=== PATIENT | male | born 2000 | race Caucasian/White ===

== ENCOUNTER → 2020-08-08 13:08 | Outpatient (CLI) | payer BC, SELFPAY ==
[2020-08-08 14:44] LABS: Basophils # 0.2 K/mm3 (0-0.2); Basophils % 1.8 % (0.1-2.0); Eosinophils # 0.1 K/mm3 (0.0-0.4); Eosinophils % 0.8 % (0.1-12.0); Hemoglobin 14.9 g/dL (14.1-18.0); Lymphocytes # 8.4 K/mm3 (0.7-4.5); Lymphocytes % 70.1 % (10-50); Mean Corpuscular HGB Conc 33.8 g/dL (31.8-35.4); Mean Corpuscular Hemoglobin 31.1 pg (27.0-31.2); Mean Platelet Volume 8.2 fl (7.4-10.4); Monocytes # 0.5 K/mm3 (0.1-1.0); Monocytes % 4.3 % (1.7-9.3); Neutrophils # 2.8 K/mm3 (1.8-7.8); Platelet Count 174 K/mm3 (142-424); Red Blood Count 4.78 M/mm3 (4.60-6.20); Red Cell Distribution Width 13.9 % (11.5-17.5)
[2020-08-08 14:46] LABS: MANUAL DIFFERENTIAL MANUAL DIFFERENTIAL (MANUAL DIFF)
[2020-08-08 16:52] LABS: Lymphocytes % 34 % (10-50); Monocytes % 35 % (2-9); Neutrophils % 26 % (42-76); Platelet Estimate Normal; RBC Morphology Normal; Total Cells Counted 100
== END ==
PROVIDERS: PCP Family Medicine; Visit Provider Family Medicine
DX: Z03.818 Encounter for observation for suspected exposure to other biological agents ruled out (principal)
CPT/HCPCS: 85007; 85025; U0003

== ENCOUNTER → 2020-10-25 12:03 | Outpatient (CLI) | payer BC, SELFPAY ==
--- NOTE | 2020-10-25 12:10 | XR_ITS ---
PROCEDURE: XR ANKLE LT MIN 3V CLINICAL INDICATION: S99.911A Posttraumatic pain and swelling COMPARISON: No exams were available for comparison FINDINGS: No fracture or dislocation. No lytic or blastic change. There is normal mineralization. The joint spaces are well-preserved. No significant degenerative/arthritic changes. No erosive changes evident. Other findings:None. IMPRESSION: No acute findings. Dictated by: Josh Del Real MD 10/25/2020 12:41 Josh Del Real MD in [place] 10/25/2020 12:41
== END ==
PROVIDERS: PCP Family Medicine; Visit Provider Family Medicine
DX: S99.911A Unspecified injury of right ankle, initial encounter (principal)
CPT/HCPCS: 73610

== ENCOUNTER → 2021-02-01 13:29 | Outpatient (CLI) | payer BC, SELFPAY ==
[2021-02-01 15:19] LABS: Basophils % 0.6 % (0.1-2.0); Eosinophils # 0.2 K/mm3 (0.0-0.4); Eosinophils % 2.7 % (0.1-12.0); Hematocrit 48.2 % (42.0-52.0); Hemoglobin 16.2 g/dL (14.1-18.0); Lymphocytes # 1.1 K/mm3 (0.7-4.5); Mean Corpuscular HGB Conc 33.6 g/dL (31.8-35.4); Mean Corpuscular Hemoglobin 30.9 pg (27.0-31.2); Mean Corpuscular Volume 91.9 fl (80-94); Monocytes # 0.4 K/mm3 (0.1-1.0); Monocytes % 5.9 % (1.7-9.3); Neutrophils # 5.1 K/mm3 (1.8-7.8); Neutrophils % 74.8 % (37.0-80.0); Platelet Count 194 K/mm3 (142-424); Red Blood Count 5.24 M/mm3 (4.60-6.20); Red Cell Distribution Width 13.3 % (11.5-17.5); White Blood Count 6.8 K/mm3 (4.8-10.8)
== END ==
PROVIDERS: PCP Family Medicine; Referring Provider Family Medicine; Visit Provider Family Medicine
DX: Z20.822 Contact with and (suspected) exposure to COVID-19 (principal)
CPT/HCPCS: 36415; 85025; U0003

== ENCOUNTER → 2021-10-26 11:11 | Outpatient (CLI) | payer BC, SELFPAY ==
[2021-10-26 11:55] LABS: Adenovirus,PCR Not Detected (NotDetected); Bordetella Pertussis Not Detected (NotDetected); Chlamydophila Pneumoniae, PCR Not Detected (NotDetected); Coronavirus 229E Not Detected (NotDetected); Coronavirus NL63 Not Detected (NotDetected); Coronavirus OC43 Not Detected (NotDetected); Coronovirus HKU1,PCR Not Detected (NotDetected); Human Metapneumovirus Not Detected (NotDetected); Influenza A, PCR Not Detected (NotDetected); Influenza AH1, 2009 Not Detected (NotDetected); Influenza AH1, PCR Not Detected (NotDetected); Influenza AH3,PCR Not Detected (NotDetected); Influenza B, PCR Not Detected (NotDetected); Mycoplasma Pneumoniae, PCR Not Detected (NotDetected); Parainfluenza 1, PCR Not Detected (NotDetected); Parainfluenza 2, PCR Not Detected (NotDetected); Parainfluenza 3, PCR Not Detected (NotDetected); Parainfluenza 4, PCR Not Detected (NotDetected); Respiratory Syncytial Virus Not Detected (NotDetected); Rhinovirus/Enterovirus Not Detected (NotDetected)
[2021-10-26 12:09] LABS: Basophils # 0.1 K/mm3 (0-0.2); Basophils % 2.5 % (0.1-2.0); Eosinophils % 0.8 % (0.1-12.0); Hematocrit 51.8 % (42.0-52.0); Lymphocytes # 1.2 K/mm3 (0.7-4.5); Lymphocytes % 25.3 % (10-50); Mean Corpuscular HGB Conc 32.8 g/dL (31.8-35.4); Mean Corpuscular Hemoglobin 31.5 pg (27.0-31.2); Mean Corpuscular Volume 95.9 fl (80-94); Mean Platelet Volume 8.3 fl (7.4-10.4); Monocytes # 0.6 K/mm3 (0.1-1.0); Monocytes % 12.7 % (1.7-9.3); Neutrophils # 2.8 K/mm3 (1.8-7.8); Neutrophils % 58.8 % (37.0-80.0); Platelet Count 185 K/mm3 (142-424); Red Blood Count 5.41 M/mm3 (4.60-6.20); White Blood Count 4.8 K/mm3 (4.8-10.8)
[2021-10-26 14:02] LABS: Coronavirus 19, PCR Detected (NotDetected)
== END ==
PROVIDERS: PCP Family Medicine; Visit Provider Family Medicine
DX: U07.1 COVID-19 (principal)
CPT/HCPCS: 36415; 85025; 87581; 87632; 87798; C9803; U0003; U0005

== ENCOUNTER → 2021-12-19 08:56 | Outpatient (POV) | payer BC, SELFPAY | PROVIDERS: Visit Provider Dermatology | DX: Z00.00 Encounter for general adult medical examination without abnormal findings (principal) ==

== ENCOUNTER → 2023-03-12 10:14 | Outpatient (POV) | payer BC, SELFPAY | PROVIDERS: Visit Provider Dermatology | DX: Z00.00 Encounter for general adult medical examination without abnormal findings (principal) ==

== ENCOUNTER 2024-06-18 09:13 | Emergency (ER) | payer BC, SELFPAY ==
[2024-06-18 09:26] VITALS: BP 143/83; PULSE 75; RESP 16; TEMP 36.8; O2SAT 100; BMI 30.3
--- NOTE | 2024-06-18 09:26 | XR_ITS ---
FINAL REPORT CLINICAL HISTORY: smashed 3rd digit COMPARISON: None FINDINGS: LEFT HAND: 3 views of the left hand were obtained. There is no acute fracture or dislocation. Visualized joint spaces are normally aligned. Soft tissues are unremarkable. IMPRESSION: No acute bony abnormality. Reviewed, Interpreted and Dictated by Mike Ronquillo III, MD Transcribed by Rufina Wan Authenticated and [facility]
--- NOTE | 2024-06-18 09:59 | ED_ITS ---
Discharge Plan Disposition Patient Disposition: Home, Self-Care Condition: Good Prescriptions Prescriptions: New cephalexin 500 mg capsule 500 mg PO QID Qty: 40 0RF mupirocin 2 % ointment 1 applic topical TID 7 Days Qty: 15 0RF No Action amoxicillin 500 mg capsule 500 mg PO Q12H 10 Days Qty: 20 0RF Referrals Follow up/Referrals: Jovanni Casanova MD [Primary Care Provider] - See instructions Artis Chua DO [Staff Physician] - See instructions Activity Restrictions/Add. Instructions Additional Instructions/Restrictions: Keep the wound clean and dry. Rest the extremity, Elevate the extremity as tolerated while you are resting. Keep a dressing on it if you are going to be getting it dirty. Watch the wound for signs of infection, such as redness, swelling, drainage, fever. etc. Take the antibiotics as directed. Take tylenol or ibuprofen for pain. Follow up with your regular doctor. Follow up with Dr. Chua (orthopedics). I put in a referral but you need to call his office and schedule an appointment. GO TO THE ER FOR ANY WORSENING SYMPTOMS OR CONCERNS. Clinical Impressions Clinical Impression: Laceration of left middle finger, Crushing injury of left middle finger Stand Alone Forms Stand Alone Forms: Work/School Release Instructions Patient Instructions: DI for Crush Injury, Cephalexin Print Language Print Language: Greenlandic Discharge ED Provider: Burton Ledesma [facility] General Stated complaint: L hand middle finger slammed in car door ao 06/18 Mode of Arrival: Ambulatory Source of Information: Patient Limitations: No Limitations Time Seen by Provider: 06/18/24 09:59 Description of Symptoms (Recalled from Triage Doc. by RN): Smashed left middle finger in the car door. HEENT Symptoms (Recalled from RN notes): No Resp Symptoms (Recalled from RN notes): No Skin Symptoms (Recalled from RN notes): Yes MS Symptoms (Recalled from RN notes): Yes Functional Status (Recalled from RN notes): wnl History of Present Illness Provider Complaint: He states that early this morning he got his left middle finger caught in his truck door. He has pain, swelling of the tip of that finger. He also has a superficial laceration on the palmar aspect of that finger. no other injury or complaints noted. His tdap is up to date. Related Data Previous Rx's ?Medication ?Instructions ?Recorded amoxicillin 500 mg capsule 500 mg PO Q12H 10 days #20 caps 12/18/18 cephalexin 500 mg capsule 500 mg PO QID #40 caps 06/18/24 mupirocin 2 % topical ointment 1 applic topical TID 7 days #15 06/18/24 grams Allergies Allergy/AdvReac Type Severity Reaction Status Date / Time No Known Allergies Allergy Verified 12/18/18 16:44 Worker's Comp Is this a Worker's Comp case?: No [facility] Dis[facility]: The information contained in this section may have been updated after the patient was seen, as this information can be updated by other users. Social History Smoking Status: Current every day smoker tobacco type: cigarettes (one pack every 2 weeks) alcohol intake: current alcohol intake frequency: a few times a month substance use type: marijuana current occupational status: employed Travel in the last 8 weeks: None household members: family housing: house ROS Obtained: Yes All systems reviewed & no additional complaints except as doc umented Constitutional Constitutional: Denies chills and Denies fever(s) Eyes Eyes: Denies eye discharge ENT Ears, Nose, Mouth, and Throat: Denies dizziness, Denies otalgia and Denies sore throat Cardiovascular Cardiovascular: Denies chest pain Respiratory Respiratory: Denies shortness of breath, Denies chest congestion, Denies cough, Denies stridor and Denies wheezing Gastrointestinal Gastrointestingal: Denies nausea or vomiting Musculoskeletal Musculoskeletal: Reports system reviewed and no additional complaints, except as documented, Denies arthralgias and Denies numbness Integumentary/Breasts Skin/Breast: Reports as per HPI Neurologic Neurologic: Denies dizziness, Denies numbness and Denies paresthesias Allergic/Immunologic Allergic/Immunologic: Denies wheezing Physical Exam General General appearance: alert and in no apparent distress Head Head exam: atraumatic, normocephalic and normal inspection Eye Eye exam: Present normal appearance, PERRL and EOMI ENT ENT exam: Present normal exam, normal oropharynx, mucous membranes moist, TM's normal bilaterally and normal external ear exam Neck Neck exam: Present normal inspection, full ROM and trachea midline; Absent meningismus or lymphadenopathy Chest Chest inspection: Present normal inspection and symmetric chest wall rise; Absent tenderness Respiratory Respiratory exam: Present normal lung sounds bilaterally; Absent respiratory distress Cardiovascular Cardiovascular exam: Present regular rate and normal rhythm; Absent JVD Abdominal Exam Abdominal exam: Present soft and normal bowel sounds; Absent distention, tenderness or guarding Extremities Exam Extremities exam: Present normal capillary refill; Absent calf tenderness Expanded Upper Extremity Exam Left: Forearm/Wrist exam: Present normal inspection and full ROM; Absent tenderness, tenderness over anatomical snuff box or pain with axial thumb loading Hand exam: Present full ROM, tenderness, swelling and laceration; Absent abrasion, skin avulsion, ecchymosis, deformity, crepitus, dislocation, erythema, amputation, nail avulsion or subungual hematoma Neuromotor exam: Normal wrist extension, thumb opposition, thumb IP flexion, thumb adduction and fingers 2-5 abduction Neurosensory exam: Normal radial nerve, ulnar nerve and median nerve Vascular exam: Normal capillary refill, radial pulse and ulnar pulse Back Exam Back exam: Present normal inspection; Absent tenderness Neurological Exam Neurological exam: Present alert and oriented X3 Psychiatric Psychiatric exam: Present normal affect and normal mood Skin Skin exam: Present warm, dry, intact and normal color Lymphatic Lymphatic Findings: no adenopathy Medical Decision Making Medical Records Medical records reviewed: No I reviewed the patient's medical records. [place] Inquiry Pt receiving controlled substance: No Vital Signs: 06/18/24 09:26 Temperature 98.2 F Temperature Source Oral Pulse Rate [Radial] 75 Respiratory Rate 16 Blood Pressure [Right Arm] 143/83 H Blood Pressure Mean [Right Arm] 103 Blood Pressure Source [Right Arm] Automatic Cuff Blood Pressure Position [Right Arm] Sitting 02 Sat by Pulse Oximetry 100 Oxygen Delivery Method Room Air Orders (Tests/Meds): ORDERS Category Date Time Status Hand XR left minimum 3 views [XR hand LT min 3V] Stat Exams 06/18/24 09:26 Taken Radiology Data #1: Image(s): Hand Image Reviewed: Yes I reviewed the patient's radiology image and Yes I have reviewed radiologist's interpretation Preliminary Findings: No Fracture Seen Accession No. : [id number] Patient Name / ID : Elieser Marie / [id number] Exam Date : 06/18/2024 09:29:37 ( Final ) Study Comment : Sex / Age : M / 23Y Creator : JIGNESH RONQUILLO MD Dictator : Medical Assistant Float : Sales Promotion Officer : JIGNESH RONQUILLO MD Approver2 : Report Date : 06/18/2024 10:56:57 My Comment : FINAL REPORT CLINICAL HISTORY: smashed 3rd digit COMPARISON: None FINDINGS: LEFT HAND: 3 views of the left hand were obtained. There is no acute fracture or dislocation. Visualized joint spaces are normally aligned. Soft tissues are unremarkable. IMPRESSION: No acute bony abnormality. Reviewed, Interpreted and Dictated by Jignesh Ronquillo III, MD Transcribed by Rufina Wan Authenticated and [facility] Medical Decision Narrative: He refused to have the laceration on his finger dermabonded or sutured.
[2024-06-18 11:27] VITALS: BP 143/83; PULSE 75; RESP 16; TEMP 36.8; O2SAT 100
== END 2024-06-18 11:28 | disposition home or self-care (01) ==
PROVIDERS: Emergency Provider Nurse Practitioner Family; PCP Family Medicine
DX: S61.213A Laceration without foreign body of left middle finger without damage to nail, initial encounter (principal); W23.0XXA Caught, crushed, jammed, or pinched between moving objects, initial encounter
CPT/HCPCS: 73130; 99204; 99212; G0463